=== PATIENT | female | born 1985 | race Caucasian/White ===

== ENCOUNTER 2016-11-19 08:38 | Emergency (ER) | payer MEDICAID ==
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
[~2016-11-19 08:38] MED LIST: ALEVE220 MG PO; CELEXA20 MG PO; CHOLESTYRAMINE210 GM PO; COLACE100 MG PO; DRAMAMINE25 MG PO; MILK OF MA400 MG/5 M PO; NORCO 5-325 MG1 TAB PO; OMEPRAZOLE40 MG PO; PREPARATION H O57 GM TOP; PROTONIX40 MG PO; ZOFRAN ODT8 MG PO; ZOFRAN4 MG PO
== END 2016-11-19 09:50 | disposition disaster alternative care site (69) ==
LOC: GMED 08:38
DX: T76.21XA Adult sexual abuse, suspected, initial encounter (principal); F41.8 Other specified anxiety disorders; F12.10 Cannabis abuse, uncomplicated; K58.0 Irritable bowel syndrome with diarrhea; K21.9 Gastro-esophageal reflux disease without esophagitis; Z90.49 Acquired absence of other specified parts of digestive tract; Z96.22 Myringotomy tube(s) status; Z79.899 Other long term (current) drug therapy